=== PATIENT | female | born 1940 | race Caucasian/White ===

== ENCOUNTER → 2017-07-16 09:00 | Outpatient (CLI) | payer OTHER, SELFPAY ==
--- NOTE | 2017-07-16 | DI.MG.S_ITS ---
BILATERAL DIGITAL SCREENING MAMMOGRAM 3D/2D WITH CAD: 07/16/2017 CLINICAL: Routine screening. Comparison is made to exams dated: 01/02/2016 mammogram - [facility], 12/14/2014 mammogram, and 12/07/2013 mammogram - [facility]. There are scattered fibroglandular elements in both breasts. Current study was also evaluated with a Computer Aided Detection (CAD) system. No significant masses, calcifications, or other findings are seen in either breast. There has been no significant interval change. IMPRESSION: NEGATIVE There is no mammographic evidence of malignancy. A 1 year screening mammogram is recommended. This exam was interpreted at Station ID: [id number]. NOTE: For mammograms, a report in lay terms will be sent to the patient. Approximately 15% of breast malignancies will not be visualized mammographically. In the management of a palpable breast mass, a negative mammogram must not discourage biopsy of a clinically suspicious lesion. Electronically Signed By: Gela odell/ania:07/16/2017 09:59:53 letter sent: Normal Exam ACR BI-RADS Category 1: Negative 3341F
== END ==
PROVIDERS: PCP Internal Medicine; Visit Provider Internal Medicine
DX: Z12.31 Encounter for screening mammogram for malignant neoplasm of breast (principal)
CPT/HCPCS: 77063; 77067

== ENCOUNTER → 2017-07-30 08:18 | Outpatient (CLI) | payer OTHER, SELFPAY ==
[2017-07-30 11:23] LABS: BUN Creatinine Ratio 34.3 (6-22); Blood Urea Nitrogen 24 mg/dL (7-17); Calcium 10.1 mg/dL (8.4-10.2); Carbon Dioxide 29 mmol/L (22-32); Chloride 100 mmol/L (98-107); Estimated Glomerular Filt Rate > 60.0 mL/min (>60); Glucose 168 mg/dL (80-110); HEMOLYSIS < 15 (0-50); Potassium 4.3 mmol/L (3.4-5.1); Sodium 141 mmol/L (137-145)
[2017-07-30 11:33] LABS: Hemoglobin A1C% w Est Avg Glu 6.9 % (4.0-6.0)
== END ==
PROVIDERS: PCP Internal Medicine; Visit Provider Internal Medicine
DX: E11.65 Type 2 diabetes mellitus with hyperglycemia (principal)
CPT/HCPCS: 36415; 80048; 83036

== ENCOUNTER → 2017-12-11 08:03 | Outpatient (CLI) | payer OTHER, SELFPAY ==
[2017-12-11 08:41] LABS: Hemoglobin A1C% w Est Avg Glu 8.4 % (4.0-6.0)
[2017-12-11 09:12] LABS: BUN Creatinine Ratio 31.7 (6-22); Blood Urea Nitrogen 19 mg/dL (7-17); Carbon Dioxide 30 mmol/L (22-32); Chloride 101 mmol/L (98-107); Estimated Glomerular Filt Rate > 60.0 mL/min (>60); Glucose 198 mg/dL (80-110); HEMOLYSIS < 15 (0-50); Potassium 4.7 mmol/L (3.4-5.1); Sodium 140 mmol/L (137-145)
== END ==
PROVIDERS: PCP Internal Medicine; Visit Provider Internal Medicine
DX: E11.65 Type 2 diabetes mellitus with hyperglycemia (principal)
CPT/HCPCS: 36415; 80048; 83036

== ENCOUNTER → 2018-01-07 13:51 | Outpatient (CLI) | payer OTHER, SELFPAY | PROVIDERS: PCP Internal Medicine; Visit Provider Internal Medicine Rheumatology | DX: M85.852 Other specified disorders of bone density and structure, left thigh (principal); Z78.0 Asymptomatic menopausal state; E07.9 Disorder of thyroid, unspecified; Z82.62 Family history of osteoporosis | CPT/HCPCS: 77080 ==

== ENCOUNTER → 2018-03-12 10:28 | Outpatient (CLI) | payer OTHER, SELFPAY ==
[2018-03-12 11:04] LABS: Hemoglobin A1C% w Est Avg Glu 7.9 % (4.0-6.0)
[2018-03-12 12:41] LABS: Blood Urea Nitrogen 18 mg/dL (7-17); Carbon Dioxide 26 mmol/L (22-32); Chloride 101 mmol/L (98-107); Estimated Glomerular Filt Rate > 60.0 mL/min (>60); Glucose 149 mg/dL (80-110); HEMOLYSIS < 15 (0-50); Potassium 4.7 mmol/L (3.4-5.1); Sodium 139 mmol/L (137-145)
== END ==
PROVIDERS: PCP Internal Medicine; Visit Provider Internal Medicine
DX: E11.65 Type 2 diabetes mellitus with hyperglycemia (principal)
CPT/HCPCS: 36415; 80048; 83036

== ENCOUNTER → 2018-06-11 09:24 | Outpatient (CLI) | payer OTHER, SELFPAY ==
[2018-06-11 10:41] LABS: Blood Urea Nitrogen 18 mg/dL (7-17); Calcium 9.9 mg/dL (8.4-10.2); Carbon Dioxide 26 mmol/L (22-32); Chloride 100 mmol/L (98-107); Estimated Glomerular Filt Rate > 60.0 mL/min (>60); Glucose 164 mg/dL (80-110); HEMOLYSIS < 15 (0-50); Potassium 4.1 mmol/L (3.4-5.1); Sodium 137 mmol/L (137-145)
[2018-06-11 10:55] LABS: Free T4, Direct Thyroxine 1.74 ng/dL (0.78-2.19)
[2018-06-11 11:09] LABS: Thyroid Stimulating Hormone 1.38 uIU/mL (0.47-4.68)
== END ==
PROVIDERS: PCP Internal Medicine; Visit Provider Internal Medicine
DX: E11.65 Type 2 diabetes mellitus with hyperglycemia (principal); I10 Essential (primary) hypertension; M25.50 Pain in unspecified joint; E03.9 Hypothyroidism, unspecified
CPT/HCPCS: 36415; 80048; 83036; 84439; 84443

== ENCOUNTER → 2018-07-17 10:24 | Outpatient (CLI) | payer OTHER, SELFPAY ==
--- NOTE | 2018-07-17 | DI.MG.S_ITS ---
BILATERAL DIGITAL SCREENING MAMMOGRAM 3D/2D WITH CAD: 07/17/2018 CLINICAL: Routine screening. Comparison is made to exams dated: 07/16/2017 mammogram, 01/02/2016 mammogram, 04/08/2007 mammogram, and 01/30/2006 mammogram - [facility]. There are scattered fibroglandular elements in both breasts. Current study was also evaluated with a Computer Aided Detection (CAD) system. No significant masses, calcifications, or other findings are seen in either breast. Linear scar markers overlie the left breast. There has been no significant interval change. IMPRESSION: NEGATIVE There is no mammographic evidence of malignancy. A 1 year screening mammogram is recommended. This exam was interpreted at Station ID: [id number]. NOTE: For mammograms, a report in lay terms will be sent to the patient. Approximately 15% of breast malignancies will not be visualized mammographically. In the management of a palpable breast mass, a negative mammogram must not discourage biopsy of a clinically suspicious lesion. Electronically Signed By: Casa Somers M.D. ecl/:07/17/2018 17:58:12 letter sent: Normal Exam ACR BI-RADS Category 1: Negative 3341F
== END ==
PROVIDERS: PCP Internal Medicine; Visit Provider Internal Medicine
DX: Z12.31 Encounter for screening mammogram for malignant neoplasm of breast (principal)
CPT/HCPCS: 77063; 77067

== ENCOUNTER → 2018-10-04 08:06 | Outpatient (CLI) | payer OTHER, SELFPAY ==
[2018-10-04 09:40] LABS: Hemoglobin A1C% w Est Avg Glu 7.7 % (4.0-6.0)
[2018-10-04 09:57] LABS: Alanine Aminotransferase 18 IU/L (9-52); Albumin Globulin Ratio 1.3 (1.0-2.8); Alkaline Phosphatase 88 U/L (38-126); Aspartate Aminotransferase 13 IU/L (14-36); Bilirubin Total 0.7 mg/dL (0.2-1.3); Blood Urea Nitrogen 15 mg/dL (7-17); Calcium 10.1 mg/dL (8.4-10.2); Carbon Dioxide 29 mmol/L (22-32); Chloride 100 mmol/L (98-107); Cholesterol 214 mg/dL (140-199); Estimated Glomerular Filt Rate > 60.0 mL/min (>60); Glucose 187 mg/dL (80-110); HDL Cholesterol 45 mg/dL (40-60); HEMOLYSIS < 15 (0-50); LDL Cholesterol Calculated 146 mg/dL (<100); Potassium 4.4 mmol/L (3.4-5.1); Sodium 138 mmol/L (137-145); Triglycerides 115 mg/dL (35-150)
[2018-10-04 09:59] LABS: Creatinine Urine Random 134.7 mg/dL
[2018-10-04 10:00] LABS: Microalbumi Creatinin Ratio Ur 16.3 ug/mg CR (<30); Microalbumin Urine Random 2.2 mg/dL (0-1.6)
== END ==
PROVIDERS: PCP Internal Medicine; Visit Provider Internal Medicine
DX: E03.9 Hypothyroidism, unspecified (principal); E11.65 Type 2 diabetes mellitus with hyperglycemia; I10 Essential (primary) hypertension; M25.50 Pain in unspecified joint
CPT/HCPCS: 36415; 80053; 80061; 82043; 82570; 83036

== ENCOUNTER → 2018-11-25 10:56 | Outpatient (CLI) | payer OTHER, SELFPAY ==
--- NOTE | 2018-11-25 10:59 | DI.RAD.S_ITS ---
PROCEDURE: XR CHEST 2V INDICATIONS: cough TECHNIQUE: 2 views of the chest were acquired. COMPARISON: [facility], , CHEST 1 VIEW, 11/21/2016, 14:37. FINDINGS: Surgical changes and devices: None. Lungs and pleura: Lungs are clear. No pleural effusions or pneumothorax. Mediastinum: Mediastinal contours are normal. Heart size is normal. Bones and chest wall: No suspicious bony abnormalities. Soft tissues appear unremarkable. IMPRESSION: No acute disease. Dictated by: Adam Meadows M.D. on 11/25/2018 at 11:29 Approved by: Adam Meadows M.D. on 11/25/2018 at 11:30
== END ==
PROVIDERS: PCP Internal Medicine; Visit Provider Nurse Practitioner Family
DX: R05 Cough (principal)
CPT/HCPCS: 71046

== ENCOUNTER 2018-11-26 18:16 | Emergency (ER) | payer OTHER, SELFPAY ==
[2018-11-26 18:19] VITALS: BP 149/85; PULSE 71; RESP 18; TEMP 37.8; O2SAT 100
[2018-11-26] MEDS: ONDANSETRON 4 MG ODT PO (18:29)
--- NOTE | 2018-11-26 21:11 | PC.NURSE ---
2100 pt has taken po fluids, crackers, denies further nausea, diarrhea, or other sx, states she will stop taking the tessalon that she feels caused her vomiting/diarrhea, now >2 hours with no sx
--- NOTE | 2018-11-27 02:19 | ED_ITS ---
HPI - Nausea/Vomiting/Diarrhea General Chief complaint: Nausea/Vomiting/Diarrhea Stated complaint: sick,vomiting,diarrhea,new Rx today Source: patient and EMS Mode of arrival: EMS Related Data Home Medications Medication Instructions Recorded Confirmed ascorbic acid (vitamin C) 1,000 mg 1 gram PO DAILY tab 11/25/18 11/25/18 tablet aspirin 325 mg tablet 650 mg PO BID PRN tab 11/25/18 11/25/18 furosemide 20 mg tablet 20 mg PO QDAY PRN tab 11/25/18 [id number] 333 mg PO 11/25/18 11/25/18 mg-1.7 mg chewable tablet naproxen sodium 220 mg capsule 220 mg PO BID PRN 11/25/18 11/25/18 turmeric root extract 500 mg 500 mg PO DAILY 11/25/18 11/25/18 capsule Previous Rx's Medication Instructions Recorded levothyroxine 125 mcg tablet 125 mcg PO QDAY #90 tab 07/16/18 Glucose: Test Strips 0 str #250 str 10/03/18 atenolol 50 mg tablet 50 mg PO DAILY #30 tab 11/19/18 benzonatate 100 mg capsule 100 mg PO TID PRN #30 cap 11/25/18 dextromethorphan-guaifenesin ER 60 1 tab PO Q12H #30 tab 11/25/18 mg-1,200 mg tab,extend release,12hr Allergies Allergy/AdvReac Type Severity Reaction Status Date / Time lisinopril [LISINOPRIL] Allergy Mild Verified 11/25/18 10:26 Wpkotvj-Uly-Rkv Reductase Allergy Mild muscle pain Verified 11/25/18 10:26 Inhibitor [[id number] REDUCTASE INHIBITOR] losartan AdvReac Intermediate back pain, Verified 11/25/18 10:26 arthralgias metoprolol [METOPROLOL] AdvReac Mild ankle Verified 11/25/18 10:26 swelling, atenolol okay [facility] Medical History (Updated 11/26/18 @ 21:24 by Rivera Tejeda RN) Abnormal genetic test (Chronic) Acquired hypothyroidism (Chronic 06/28/15) Arthralgia (Chronic) Bronchitis (Resolved) Cataract (Chronic ~2013) Chicken pox (Resolved ~1949) Concussion (Resolved ~1985) Diabetes mellitus type 2, uncomplicated (Chronic) Diverticula of colon (Chronic) Diverticular disease (Chronic) Essential hypertension (Chronic 03/26/16) Foot pain (Resolved ~2013) Headache (Resolved) Hemorrhoid (Chronic ~1959) History of adenomatous polyp of colon (Chronic 06/28/15) History of migraine (Chronic) Hyperlipidemia (Chronic 03/26/16) Lower back pain (Chronic ~1959) Microalbuminuria due to type 2 diabetes mellitus (Chronic 03/26/16) Osteoarthritis (Chronic ~1994) Plantar warts (Resolved ~1973) Pneumonia (Resolved) Psoriasis (Chronic ~2011) Recurrent sinusitis (Resolved ~1949) Surgical History Anesthesia (Resolved) Breast cyst (Resolved) History of nasal surgery (Resolved) History of tonsillectomy (~1947) Status post hysterectomy (~1982) Surgical procedure planned (Resolved) Family History Sister Age: 78 Pacemaker Diabetes mellitus Asthma Heart disease Hypertension High cholesterol Kidney disease Father No problems noted. Grandfather No problems noted. Grandmother No problems noted. Mother No problems noted. Grandfather No problems noted. Grandmother No problems noted. 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 Smoking Status: Never smoker Tobacco: How many years used: 0 quit status: quit date established (Never Started) alcohol intake: never substance use type: does not use 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 Smoking Status: Never smoker Tobacco: How many years used: 0 quit status: quit date established (Never Started) alcohol intake: never substance use type: does not use Exam Initial Vital Signs Initial Vital Signs: Vital Signs Temperature 100.1 F H 11/26/18 18:19 Pulse Rate 71 11/26/18 18:19 Respiratory Rate 18 11/26/18 18:19 Blood Pressure 149/85 H 11/26/18 18:19 Pulse Oximetry 100 11/26/18 18:19 Course Orders Ordered: Discontinued Medications Ondansetron HCl (Zofran Odt) 4 mg PO NOW ONE Stop: 11/26/18 18:27 Last Admin: 11/26/18 18:29 Dose: 4 mg Documented by: SIDDHARTH Discharge Plan Departure Patient Disposition: Left Without Being Seen Clinical Impression: Patient left without being seen Discharge Date/Time: 11/26/18 21:21 Stand Alone Forms: Against Medical Advice
== END 2018-11-26 21:21 | disposition left against medical advice (07) ==
PROVIDERS: Emergency Provider Emergency Medicine; PCP Internal Medicine
DX: R11.10 Vomiting, unspecified (principal)
CPT/HCPCS: 99282

== ENCOUNTER → 2018-12-21 11:12 | Outpatient (CLI) | payer OTHER, SELFPAY ==
--- NOTE | 2018-12-21 11:14 | DI.RAD.S_ITS ---
PROCEDURE: XR CHEST 2V INDICATIONS: Productive cough, with clinical concern for pneumonia. TECHNIQUE: 2 views of the chest were acquired. COMPARISON: [facility], [place], CHEST 1 VIEW, 11/21/2016, 14:37. [facility], [place], XR CHEST 2V, 11/25/2018, 11:15. FINDINGS: Surgical changes and devices: None. Lungs and pleura: An incomplete inspiratory result is noted, causing a crowded appearance to the lung markings. No focal infiltrates are seen. No pneumothorax or significant pleural effusions are seen. Mediastinum: The cardiac contours are within normal limits. The aorta demonstrates calcification and tortuosity. Bones and chest wall: No suspicious bony abnormalities. Age-appropriate bony degenerative changes are seen. Soft tissues appear unremarkable. IMPRESSION: Limited study demonstrating no focal infiltrates. Dictated by: Gustabo Lord M.D. on 12/21/2018 at 10:53 Approved by: Gustabo Lord M.D. on 12/21/2018 at 10:54
[2018-12-21 11:53] LABS: Add Manual Diff / Slide Review NO; Basophils Absolute Auto 100 /uL (0-100); Basophils Percent Auto 1.3 % (0-2); Eosinophils Absolute Auto 200 /uL (0-450); Hematocrit 38.9 % (36-46); Hemoglobin 12.7 g/dL (12.0-16.0); Lymphocytes Absolute Auto 1800 /uL (1100-4500); Lymphocytes Percent Auto 21.5 % (25-40); Mean Corpuscular HGB Conc 32.6 % (30-36); Mean Corpuscular Volume 76.8 fL (80-100); Monocytes Absolute Auto 600 /uL (0-900); Monocytes Percent Auto 7.8 % (3-14); Neutrophils Absolute Auto 5600 /uL (1500-7000); Neutrophils Percent Auto 67.4 % (50-75); Platelet Count 461 X10^3/uL (150-400); Red Blood Cell Count 5.06 X10^6/uL (4.0-5.2); Red Cell Distribution Width 16.9 % (11.6-14.8); White Blood Cell Count 8.2 X10^3/uL (4.5-11.0)
[2018-12-21 12:07] LABS: Alanine Aminotransferase 17 IU/L (9-52); Albumin 4.5 g/dL (3.5-5.0); Albumin Globulin Ratio 1.3 (1.0-2.8); Alkaline Phosphatase 103 U/L (38-126); Aspartate Aminotransferase 15 IU/L (14-36); BUN Creatinine Ratio 24.3 (6-22); Bilirubin Total 0.6 mg/dL (0.2-1.3); Blood Urea Nitrogen 17 mg/dL (7-17); Calcium 10.5 mg/dL (8.4-10.2); Carbon Dioxide 30 mmol/L (22-32); Chloride 98 mmol/L (98-107); Estimated Glomerular Filt Rate > 60.0 mL/min (>60); Globulin 3.4 g/dL (1.7-4.1); Glucose 243 mg/dL (80-110); HEMOLYSIS < 15 (0-50); Potassium 4.1 mmol/L (3.4-5.1); Sodium 138 mmol/L (137-145); Total Protein 7.9 g/dL (6.3-8.2)
== END ==
PROVIDERS: Visit Provider Physician Assistant
DX: R05 Cough (principal)
CPT/HCPCS: 36415; 71046; 80053; 85025

== ENCOUNTER → 2018-12-22 08:23 | Outpatient (CLI) | payer OTHER, SELFPAY | PROVIDERS: Visit Provider Internal Medicine | DX: R05 Cough (principal) | CPT/HCPCS: 87070; 87205 ==

== ENCOUNTER 2018-12-27 12:49 | Emergency (ER) | payer OTHER, SELFPAY ==
--- NOTE | 2018-12-27 13:06 | ED_ITS ---
HPI - Dizziness General Chief Complaint: Dizziness Stated Complaint: DIZZINESS/SUSPECTED DRUG REACTION Time Seen by Provider: 12/27/18 13:05 Source: patient Mode of arrival: Ambulatory Limitations: no limitations History of Present Illness HPI Narrative: This is a 78-year-old female who comes to the emergency depart ment complaint of dizziness patient is concerned that possibly could be a medication reaction. She has been using Afrin intranasally for the last several days. Before that she was also taking Mucinex and has taken several different formulations over the last several weeks. She states yesterday she took her atenolol and thyroid medication at 6:00 p.m., she has the Afrin about 6:30 p.m. and when thin an hour she started feeling like the room was spinning. She states it feels better presently but is still there. She states that she has had a couple of these vertigo type episodes in the past sometimes a week apart sometimes farther. She states that usually they have totally resolved. She thought that her symptoms likely from the medication and so she was waiting for them to resolve as the medication wore off. She has had some right forehead pressure and into the right cheek today but for the past 2 weeks. It was actually worse the 1st for 5 days but is improving. She denies any facial droop, no numbness in her face, no vision changes. She denies any weakness, numbness in her extremities, she has had a cough but has been improving over time. She states she sometimes gets chest pressure with the cough and had rib pain but the rib pain has resolved. She denies shortness of breath she denies any vomiting. She sometimes feels slightly nauseated. No issues with bowel movements. Patient states that she gets some urinary stress incontinence with cough. Patient states that she has had sinus symptoms for 2 and half months, her maximum temperature has been 99 F she followed up with primary care and they did put her on the Mucinex and expectorant but she had wished for antibiotics. Related Data Home Medications Medication Instructions Recorded Confirmed ascorbic acid (vitamin C) 1,000 mg 1 gram PO DAILY tab 11/25/18 12/21/18 tablet aspirin 325 mg tablet 650 mg PO BID PRN tab 11/25/18 12/21/18 furosemide 20 mg tablet 20 mg PO QDAY PRN tab 11/25/18 12/21/18 [id number] 333 mg PO 11/25/18 12/21/18 mg-1.7 mg chewable tablet naproxen sodium 220 mg capsule 220 mg PO BID PRN 11/25/18 12/21/18 turmeric root extract 500 mg 500 mg PO DAILY 11/25/18 12/21/18 capsule Previous Rx's Medication Instructions Recorded levothyroxine 125 mcg tablet 125 mcg PO QDAY #90 tab 07/16/18 Glucose: Test Strips 0 str #250 str 10/03/18 dextromethorphan-guaifenesin ER 60 1 tab PO Q12H #30 tab 11/25/18 mg-1,200 mg tab,extend release,12hr atenolol 50 mg tablet 50 mg PO DAILY #30 tab 12/17/18 meclizine 25 mg PO TID PRN #14 tab 12/27/18 Allergies Allergy/AdvReac Type Severity Reaction Status Date / Time benzonatate Allergy Severe Severe Verified 12/21/18 10:46 [From Anoop Camargo] shaking, vomiting, diarrhea, trip to ER lisinopril [LISINOPRIL] Allergy Mild Dizzyness Verified 12/21/18 10:46 Rnnlbrr-Rat-Zfb Reductase Allergy Mild muscle pain Verified 12/21/18 10:46 Inhibitor [SUIKDHI-NZD-SRF REDUCTASE INHIBITOR] losartan AdvReac Intermediate back pain, Verified 12/21/18 10:46 arthralgias metoprolol [METOPROLOL] AdvReac Mild ankle Verified 12/21/18 10:46 swelling, atenolol okay Review of Systems Review of Systems ROS Unobtainable: All systems reviewed & are unremarkable except as noted in HPI and below Constitutional Constitutional: Denies chills, Denies fever(s) (Tmax 99.2 in ), Denies headache(s), Denies lethargy and Denies weakness Eyes Eyes: Denies change in vision ENT Ears, Nose, Mouth, and Throat: Reports as per HPI, Denies abnormal hearing, Denies change in voice, Reports vertigo, Denies ear discharge, Denies otalgia, Denies headache(s), Reports nasal congestion, Denies nasal obstruction, Denies neck pain, Reports post nasal drip, Denies sinus pain, Reports sinus pressure and Denies sore throat Cardiovascular Cardiovascular: Reports chest pain (With cough), Denies edema, Denies irregular heart rhythm, Denies lightheadedness, Denies palpitations, Denies dyspnea and D enies orthopnea Respiratory Respiratory: Denies change in phlegm color, Denies chest congestion, Reports cough (Improving), Denies excessive phlegm production, Denies pain on inspiration, Reports pain with cough, Denies dyspnea and Denies wheezing Gastrointestinal Gastrointestinal: Denies abdominal pain, Denies change in bowel habits, Denies diarrhea, Denies nausea and Denies vomiting Genitourinary Genitourinary: Denies hematuria, Denies urinary frequency, Denies dysuria, Denies flank pain, Denies urinary incontinence and Denies urinary urgency Musculoskeletal Musculoskeletal: Denies abnormal gait, Denies muscle weakness, Denies neck pain, Denies numbness and Denies tingling Integumentary/Breasts Skin/Breast: Denies erythema and Denies rash Neurologic Neurologic: Denies abnormal hearing, Denies abnormal speech, Denies abnormal gait, Reports vertigo, Denies headache(s), Denies focal weakness, Denies numbness, Denies sensory deficit, Denies tingling, Denies paresthesias and Denies weakness Endocrine Endocrine: Denies palpitations Allergic/Immunologic Allergic/Immunologic: Denies wheezing Patient History Medical History Abnormal genetic test (Chronic) Acquired hypothyroidism (Chronic 06/28/15) Arthralgia (Chronic) Bronchitis (Resolved) Cataract (Chronic ~2013) Chicken pox (Resolved ~1949) Concussion (Resolved ~1985) Diabetes mellitus type 2, uncomplicated (Chronic) Diverticula of colon (Chronic) Diverticular disease (Chronic) Essential hypertension (Chronic 03/26/16) Foot pain (Resolved ~2013) Headache (Resolved) Hemorrhoid (Chronic ~1959) History of adenomatous polyp of colon (Chronic 06/28/15) History of migraine (Chronic) Hyperlipidemia (Chronic 03/26/16) Lower back pain (Chronic ~1959) Microalbuminuria due to type 2 diabetes mellitus (Chronic 03/26/16) Osteoarthritis (Chronic ~1994) Plantar warts (Resolved ~1973) Pneumonia (Resolved) Psoriasis (Chronic ~2011) Recurrent sinusitis (Resolved ~1949) Surgical History Anesthesia (Resolved) Breast cyst (Resolved) History of nasal surgery (Resolved) History of tonsillectomy (~1948) Status post hysterectomy (~1982) Surgical procedure planned (Resolved) Social History marital status: household members: none lives independently: Yes caregiver/support person: No housing: house pets and animals: Yes occupational status: other (Retired) current occupational exposures/hazards: No Previous occupational history: Retired [employer] Smoking Status: Never smoker Tobacco: How many years used: 0 quit status: quit date established (Never Started) alcohol intake: never substance use type: does not use alcohol intake frequency: 0-2 drinks per day Substance Use Type: does not use Exam Narrative Exam Narrative: GEN: Elderly appearing female, alert and oriented x 3, patient appears to be in mild distress. patient appears anxious. HEENT: Atraumatic, pupils are equal round reactive to light, extraocular movements are intact, no photophobia, no nystagmus, nares are clear, TMs are clear with no fluid, there is no conjunctival pallor. Throat is clear without any exudates, erythema, tonsillar enlargement or uvular deviation HEART: Regular rate and rhythm without murmur, clicks, rubs. Pulses are equal in upper and lower extremities LUNGS:Lungs clear to auscultation, no wheezes, rales, crackles, chest moves symmetrically ABD:bowel sounds normal, soft, non-tender, no guarding, rebound, rigidity, no masses noted, no hepatosplenomegaly MSCL: Non-tender, no muscle atrophy, muscles strength 5/5 upper and lower extremities, full range of motion, normal gait NEURO:CN 2-12 intact, sensation normal, reflexes 2/4 upper and lower extremities . finger nose finger test normal, heel sahu test normal, romberg normal SKIN: no erythema, no petechiae or ecchymosis. Initial Vital Signs Initial Vital Signs: Vital Signs Temperature 98.6 F 12/27/18 13:19 Pulse Rate 90 12/27/18 13:19 Respiratory Rate 13 12/27/18 13:19 Blood Pressure 180/91 H 12/27/18 13:19 Pulse Oximetry 97 12/27/18 13:19 Scores NIH Stroke Scale Level of Conciousness: Alert, keenly responsive Ask month/age: Answers both questions correctly. Open/close eyes, close hand: Performs both tasks correctly Best gaze horizontal: Normal Visual [place]: No visual loss Facial palsy: Normal symetrical movement Left arm drift: No drift for full 10 sec Right arm drift: No drift for full 10 sec Left leg drift: No drift for full 10 sec Right leg drift: No drift for full 10 sec Limb ataxia: Absent Sensory on face/arms/legs: Normal, no sensory loss Best language: No aphasia, normal Dysarthria: Normal Extinction or inattention: No abnormality Total NIH Stroke scale score: 0 Course Orders Ordered: Discontinued Medications Sodium Chloride (Normal Saline 0.9%) 1,000 mls @ 1,000 mls/hr IV BOLUS ONE Stop: 12/27/18 14:44 Last Infusion: 12/27/18 15:52 Dose: 0 mls/hr Documented by: Admin: 12/27/18 14:17 Dose: 1,000 mls/hr Documented by: SIDDHARTH Meclizine HCl (Antivert) 25 mg PO NOW ONE Stop: 12/27/18 13:46 Last Admin: 12/27/18 14:16 Dose: 25 mg Documented by: SIDDHARTH Vital Signs Vital signs: Vital Signs - 8 hr 12/27/18 13:19 Temperature 98.6 F Pulse Rate 90 Respiratory Rate 13 Blood Pressure 180/91 H Pulse Oximetry 97 MDM - Dizziness Lab Data Attestation: I reviewed the patient's lab results. Result diagrams: 12/27/18 13:50 12/27/18 13:50 Labs: Lab Results 12/27/18 12/27/18 12/27/18 Range/Units 13:07 13:50 13:50 WBC 7.9 (4.5-11.0) X10^3/uL RBC 4.86 (4.0-5.2) X10^6/uL Hgb 12.0 (12.0-16.0) g/dL Hct 36.6 (36-46) % MCV 75.4 L (80-100) fL MCH 24.8 L (26-34) PG MCHC 32.9 (30-36) % RDW 16.5 H (11.6-14.8) % Plt Count 380 (150-400) X10^3/uL Neut % (Auto) 76.0 H (50-75) % Lymph % (Auto) 14.4 L (25-40) % [place] % (Auto) 7.2 (3-14) % Eos % (Auto) 1.2 L (2-4) % Baso % (Auto) 1.2 (0-2) % Neut # (Auto) 6000 (8548-1699) /uL Lymph # (Auto) 1100 (8972-2938) /uL [place] # (Auto) 600 (0-900) /uL Eos # (Auto) 100 (0-450) /uL Baso # (Auto) 100 (0-100) /uL Sodium 136 L (137-145) mmol/L Potassium 3.9 (3.4-5.1) mmol/L Chloride 98 (98-107) mmol/L Carbon Dioxide 28 (22-32) mmol/L BUN 11 (7-17) mg/dL Creatinine 0.50 L (0.52-1.04) mg/dL Estimated GFR > 60.0 (>60) mL/min BUN/Creatinine Ratio 22.0 (6-22) Glucose 203 H (80-110) mg/dL Calcium 9.7 (8.4-10.2) mg/dL Troponin I < 0.012 (0.01-0.034) ng/mL Urine RBC 1-5/hpf (0-5/HPF) Urine WBC 1-5/hpf (0-5/HPF) Ur Squamous Epith Cells 5-10 /hpf H (0-5/HPF) Urine Bacteria None seen (None) Ur Culture Indicated? Cult not indicated Urine Dip Bedside Urine Glucose Negative Bedside Urine Bilirubin - Negative Bedside Urine Ketone - Negative Urine Specific [place] 1.010 Bedside Urine Occult Blood - Negative Bedside Urine pH 7.5 Bedside Urine Protein +/- 15 Bedside Urine Urobilinogen - Negative Bedside Urine Nitrite - Negative Bedside Urine Leukocytes + [address] scan - head: Radiologist's impression: [address] [address] [address] Scan Report Signed Patient: Lolly Bang MMR#: [id number] : 2Acct:[id number] Age/Sex: 78 / FDate of Service: 12/27/18 Loc: ED Accession Number: [id number] Procedure: CT head/brain wo con Ordering Provider: Rebekah Estrella D.O. PROCEDURE: CT HEAD/BRAIN WO CON INDICATIONS: vertigo symptoms started yesterday. has had sinus pressure TECHNIQUE: Noncontrast 4.5 mm thick angled axial sections acquired from the foramen magnum to the vertex, with coronal and sagittal reformats. For radiation dose reduction, the following was used: automated exposure control, adjustment of mA and/or kV according to patient size. COMPARISON: None. FINDINGS: Image quality: Excellent. CSF spaces: Basal cisterns are patent. No extra-axial fluid collections. Ventricles are normal in size and shape. Mild bifrontal parenchymal volume loss is evident. Brain: No midline shift. No intracranial masses or hemorrhage. Salas-white matter interface is normal. Skull and face: Calvarium and visualized facial bones are intact, without suspicious lesions. Old nasal bone fractures appear to be present. Sinuses: Visualized sinuses and mastoids are clear. The right maxillary sinus is small in size and may be congenital or related to chronic sinus disease. IMPRESSION: 1. No acute intracranial hemorrhage. 2. Mild proximal volume loss. Dictated by: Marcelino Davila M.D. on 12/27/2018 at 13:16 Approved by: Marcelino Davila M.D. on 12/27/2018 at 13:17 Chest x-ray: Radiologist's impression: [place] [address] XRay Report Signed Patient: Lolly Bang MMR#: [id number] : 2Acct:[id number] Age/Sex: 78 / FDate of Service: 12/27/18 Loc: ED Accession Number: [id number] Procedure: XR chest 1V Ordering Provider: Rebekah Estrella D.O. PROCEDURE: XR CHEST 1V INDICATIONS: vertigo symptoms. TECHNIQUE: One view of the chest was acquired. COMPARISON: [facility], [place], XR CHEST 2V, 12/21/2018, 11:21. FINDINGS: Surgical changes and devices: None. Lungs and pleura: Lungs are clear. No pleural effusions or pneumothorax. Elevation of the right diaphragm is present. Mediastinum: Mediastinal contours appear normal. Heart size is enlarged. Bones and chest wall: No suspicious bony lesions. Degenerative changes of the spine and shoulders are not well characterized. Overlying soft tissues appear unremarkable. IMPRESSION: Cardiomegaly without overt heart failure. No definite pneumonia. Dictated by: Marcelino Davila M.D. on 12/27/2018 at 13:15 Approved by: Marcelino Davila M.D. on 12/27/2018 at 13:16 ECG Data Attestation: I personally reviewed and interpreted this ECG as follows: Prior ECG tracings: available for review Interpretation: Sinus rhythm rate of 90 WI 148 QRS of [address] elevation or depression. EKG appears similar to 11/21/2018. MDM Narrative Medical decision making narrative: Patient feels much better after meclizine, able to ambulate to bathroom with minimal assistance. Discussed potential causes of her vertigo symptoms, suspicion for CVA is low. Afrin is possible a cause but less likely. Patient has had prior issues which she described. Discussed signs/symptoms to watch for and reasons to return. Plan for follow up with ENT, she has seen Dr. Aleman in the past. Patient is comfortable with the plan. Discharge Plan Departure Patient Disposition: Home Clinical Impression: Vertigo Discharge Date/Time: 12/27/18 16:31 Instructions: DI for Vertigo Activity Restrictions/Additional Instructions: Follow-up with primary care in the next week for recheck, if you prefer you can follow up with ENT for repeat evaluation of your vertigo and sinus symptoms. You may take meclizine 1-2 tablets every 8 hours as needed for symptoms. Return to the emergency department for of sudden severe headaches, new vision changes, new numbness, weakness or inability to speak, use your extremities properly, persistent vomiting or other new or concerning symptoms. Prescriptions: New meclizine 25 mg tablet,chewable 25 mg PO TID PRN (Reason: dizziness) Qty: 14 RF: 0 No Action levothyroxine [Synthroid] 125 mcg tablet 125 mcg PO QDAY Qty: 90 RF: 3 Glucose: Test Strips 0 str Qty: 250 RF: 1 atenolol 50 mg tablet 50 mg PO DAILY Qty: 30 RF: 0 furosemide [Lasix] 20 mg tablet 20 mg PO QDAY PRNRF: 0 aspirin 325 mg tablet 650 mg PO BID PRNRF: 0 naproxen sodium [Aleve] 220 mg capsule 220 mg PO BID PRNRF: 0 ascorbic acid (vitamin C) 1,000 mg tablet 1 gram PO DAILY RF: 0 Airborne (ascorbate sodium) 333-1.7 mg tablet,chewable PO RF: 0 turmeric root extract 500 mg capsule 500 mg PO DAILY RF: 0 dextromethorphan-guaifenesin [Mucinex DM] 60-1,200 mg tablet extended release 12 hr 1 tab PO Q12H Qty: 30 RF: 0 Referrals: Shayan Aleman MD [Physician] -
[2018-12-27 13:19] VITALS: BP 180/91; PULSE 90; RESP 13; TEMP 37; O2SAT 97
--- NOTE | 2018-12-27 13:32 | PC.NURSE ---
Patient has had several weeks of respiratory symptoms has been medicating with OTC mucinex nasal spray and tablets. Patient reports having dizziness room spinning unable to walk alone due to balance. Reports tenderness over sinuses on right side more than left. Patient is concerned of a drug reaction verses a stroke.
--- NOTE | 2018-12-27 13:45 | DI.CT.S_ITS ---
PROCEDURE: CT HEAD/BRAIN WO CON INDICATIONS: vertigo symptoms started yesterday. has had sinus pressure TECHNIQUE: Noncontrast 4.5 mm thick angled axial sections acquired from the foramen magnum to the vertex, with coronal and sagittal reformats. For radiation dose reduction, the following was used: automated exposure control, adjustment of mA and/or kV according to patient size. COMPARISON: None. FINDINGS: Image quality: Excellent. CSF spaces: Basal cisterns are patent. No extra-axial fluid collections. Ventricles are normal in size and shape. Mild bifrontal parenchymal volume loss is evident. Brain: No midline shift. No intracranial masses or hemorrhage. Salas-white matter interface is normal. Skull and face: Calvarium and visualized facial bones are intact, without suspicious lesions. Old nasal bone fractures appear to be present. Sinuses: Visualized sinuses and mastoids are clear. The right maxillary sinus is small in size and may be congenital or related to chronic sinus disease. IMPRESSION: 1. No acute intracranial hemorrhage. 2. Mild proximal volume loss. Dictated by: Marcelino Davila M.D. on 12/27/2018 at 13:16 Approved by: Marcelino Davila M.D. on 12/27/2018 at 13:17
--- NOTE | 2018-12-27 13:46 | DI.RAD.S_ITS ---
PROCEDURE: XR CHEST 1V INDICATIONS: vertigo symptoms. TECHNIQUE: One view of the chest was acquired. COMPARISON: [facility], , XR CHEST 2V, 12/21/2018, 11:21. FINDINGS: Surgical changes and devices: None. Lungs and pleura: Lungs are clear. No pleural effusions or pneumothorax. Elevation of the right diaphragm is present. Mediastinum: Mediastinal contours appear normal. Heart size is enlarged. Bones and chest wall: No suspicious bony lesions. Degenerative changes of the spine and shoulders are not well characterized. Overlying soft tissues appear unremarkable. IMPRESSION: Cardiomegaly without overt heart failure. No definite pneumonia. Dictated by: Marcelino Davila M.D. on 12/27/2018 at 13:15 Approved by: Marcelino Davila M.D. on 12/27/2018 at 13:16
[2018-12-27 14:01] LABS: Add Manual Diff / Slide Review NO; Basophils Absolute Auto 100 /uL (0-100); Basophils Percent Auto 1.2 % (0-2); Eosinophils Absolute Auto 100 /uL (0-450); Eosinophils Percent Auto 1.2 % (2-4); Hematocrit 36.6 % (36-46); Lymphocytes Absolute Auto 1100 /uL (1100-4500); Lymphocytes Percent Auto 14.4 % (25-40); Mean Corpuscular HGB Conc 32.9 % (30-36); Mean Corpuscular Hemoglobin 24.8 PG (26-34); Mean Corpuscular Volume 75.4 fL (80-100); Monocytes Absolute Auto 600 /uL (0-900); Monocytes Percent Auto 7.2 % (3-14); Neutrophils Absolute Auto 6000 /uL (1500-7000); Platelet Count 380 X10^3/uL (150-400); Red Blood Cell Count 4.86 X10^6/uL (4.0-5.2); Red Cell Distribution Width 16.5 % (11.6-14.8); White Blood Cell Count 7.9 X10^3/uL (4.5-11.0)
[2018-12-27 14:08] LABS: Chloride 98 mmol/L (98-107); HEMOLYSIS < 15 (0-50)
[2018-12-27 14:12] LABS: Blood Urea Nitrogen 11 mg/dL (7-17); Calcium 9.7 mg/dL (8.4-10.2); Carbon Dioxide 28 mmol/L (22-32); Estimated Glomerular Filt Rate > 60.0 mL/min (>60); Glucose 203 mg/dL (80-110); Potassium 3.9 mmol/L (3.4-5.1); Sodium 136 mmol/L (137-145)
[2018-12-27] MEDS: MECLIZINE HCL 12.5 MG TABLET 25 MG PO (14:16)
[2018-12-27] MEDS: SODIUM CHLORIDE 0.9% 1,000 ML 1000 ML IV (14:17)
[2018-12-27 14:23] LABS: Troponin I < 0.012 ng/mL (0.01-0.034)
[2018-12-27 15:20] LABS: Bacteria Urine None Seen
[2018-12-27 15:45] LABS: Culture Indicated Urine Cult Not Indicated; RBC Urine 1-5/HPF (0-5/HPF); Squamous Epithelial Cell Urine 5-10 /HPF (0-5/HPF); WBC Urine 1-5/HPF (0-5/HPF)
[2018-12-27 16:30] VITALS: BP 136/89; PULSE 76; RESP 12; O2SAT 98
== END 2018-12-27 16:31 | disposition home or self-care (01) ==
PROVIDERS: Emergency Provider Emergency Medicine
DX: R42 Dizziness and giddiness (principal); R07.9 Chest pain, unspecified; R05 Cough
CPT/HCPCS: 36415; 70450; 71045; 80048; 81003; 81015; 84484; 85025; 93005; 93010; 96360; 96361; 99283; 99285

== ENCOUNTER → 2019-01-29 09:41 | Outpatient (CLI) | payer OTHER, SELFPAY ==
--- NOTE | 2019-01-29 09:42 | DI.RAD.S_ITS ---
PROCEDURE: XR CHEST 2V INDICATIONS: cough TECHNIQUE: 2 views of the chest were acquired. COMPARISON: [facility], , CHEST 1 VIEW, 11/21/2016, 14:37. [facility], , XR CHEST 1V, 12/27/2018, 13:52. [facility], CR, XR CHEST 2V, 11/25/2018, 11:15. [facility], , XR CHEST 2V, 12/21/2018, 11:21. FINDINGS: Surgical changes and devices: None. Lungs and pleura: There is a nodular density in the right lower lung zone, not seen on the last exam. No pleural effusions or pneumothorax. Mediastinum: Mediastinal contours are normal. Heart size is normal. Bones and chest wall: No suspicious bony abnormalities. Soft tissues appear unremarkable. IMPRESSION: A nodular density in the right lower lung zone which was not seen on the last exam. Recommend a short-term followup chest x-ray. If not resolving, chest CT is suggested. Dictated by: Tony Leong M.D. on 01/29/2019 at 10:18 Approved by: Tony Leong M.D. on 01/29/2019 at 10:22
[2019-01-29 10:41] LABS: Add Manual Diff / Slide Review NO; Basophils Absolute Auto 100 /uL (0-100); Basophils Percent Auto 0.8 % (0-2); Eosinophils Absolute Auto 200 /uL (0-450); Eosinophils Percent Auto 2.5 % (2-4); Hemoglobin 11.4 g/dL (12.0-16.0); Lymphocytes Absolute Auto 1200 /uL (1100-4500); Lymphocytes Percent Auto 15.8 % (25-40); Mean Corpuscular HGB Conc 32.4 % (30-36); Mean Corpuscular Hemoglobin 24.6 PG (26-34); Mean Corpuscular Volume 75.8 fL (80-100); Monocytes Absolute Auto 600 /uL (0-900); Monocytes Percent Auto 8.5 % (3-14); Neutrophils Absolute Auto 5400 /uL (1500-7000); Neutrophils Percent Auto 72.4 % (50-75); Platelet Count 405 X10^3/uL (150-400); Red Blood Cell Count 4.63 X10^6/uL (4.0-5.2); Red Cell Distribution Width 17.1 % (11.6-14.8); White Blood Cell Count 7.5 X10^3/uL (4.5-11.0)
[2019-01-29 10:45] LABS: Hemoglobin A1C% w Est Avg Glu 8.5 % (4.0-6.0)
[2019-01-29 11:12] LABS: Alanine Aminotransferase 12 IU/L (<35); Albumin 3.8 g/dL (3.5-5.0); Albumin Globulin Ratio 1.4 (1.0-2.8); Alkaline Phosphatase 107 U/L (38-126); Aspartate Aminotransferase 12 IU/L (14-36); BUN Creatinine Ratio 17.1 (6-22); Bilirubin Total 0.5 mg/dL (0.2-1.3); Blood Urea Nitrogen 12 mg/dL (7-17); Calcium 10.2 mg/dL (8.4-10.2); Carbon Dioxide 30 mmol/L (22-32); Chloride 101 mmol/L (98-107); Estimated Glomerular Filt Rate > 60.0 mL/min (>60); Globulin 2.7 g/dL (1.7-4.1); Glucose 230 mg/dL (80-110); HEMOLYSIS < 15 (0-50); Potassium 5.1 mmol/L (3.4-5.1); Sodium 140 mmol/L (137-145); Total Protein 6.5 g/dL (6.3-8.2)
== END ==
PROVIDERS: PCP Internal Medicine; Visit Provider Internal Medicine
DX: R05 Cough (principal); E11.65 Type 2 diabetes mellitus with hyperglycemia; E78.5 Hyperlipidemia, unspecified; I10 Essential (primary) hypertension
CPT/HCPCS: 36415; 71046; 80053; 83036; 85025; 86140

== ENCOUNTER → 2019-02-10 14:37 | Outpatient (CLI) | payer OTHER, SELFPAY ==
--- NOTE | 2019-02-10 14:40 | DI.RAD.S_ITS ---
PROCEDURE: XR ACUTE ABDOMEN SERIES INDICATIONS: abdominal distention TECHNIQUE: One view chest and two views of the abdomen were acquired. COMPARISON: [facility], CR, XR CHEST 2V, 12/21/2018, 11:21. [facility], CR, XR CHEST 2V, 11/25/2018, 11:15. [facility], CR, XR CHEST 1V, 12/27/2018, 13:52. [facility], CR, XR CHEST 2V, 01/29/2019, 9:41. FINDINGS: Surgical changes and devices: None. Chest: There is a nodular density in the right lower lung zone. Lungs are clear. Heart size is normal. No pleural effusions. No pneumoperitoneum. Abdomen: Bowel gas pattern is nonspecific with paucity of small bowel gas. A moderate amount of stool in colon. No suspicious calcifications. Visualized solid organ contours appear normal. Bones: No suspicious bony lesions. IMPRESSION: 1. A moderate amount of stool in colon. 2. Nonspecific bowel gas pattern. 3. A nodular density in the right lower lung zone, which consisted since the last chest x-ray dated 01/29/2019. Chest CT is suggested for followup evaluation. Dictated by: Tony Leong M.D. on 02/10/2019 at 15:43 Approved by: Tony Leong M.D. on 02/10/2019 at 15:46
== END ==
PROVIDERS: PCP Internal Medicine; Visit Provider Internal Medicine
DX: R14.0 Abdominal distension (gaseous) (principal); R91.1 Solitary pulmonary nodule
CPT/HCPCS: 74022

== ENCOUNTER → 2019-03-04 08:41 | Outpatient (CLI) | payer OTHER, SELFPAY ==
[2019-03-04 09:04] LABS: BUN Creatinine Ratio 14.3 (6-22); Blood Urea Nitrogen 10 mg/dL (7-17); Estimated Glomerular Filt Rate > 60.0 mL/min (>60)
--- NOTE | 2019-03-04 10:17 | DI.CT.S_ITS ---
PROCEDURE: CT CHEST ABD PEL W CON INDICATIONS: abd pain/cough/pulmonary nodule TECHNIQUE: After the administration of oral and intravenous contrast, 5 mm thick sections acquired from the lung apices to the symphysis. 5 mm coronal and sagittal reformats were performed, with additional 7 mm coronal MIP reformats through the lungs. For radiation dose reduction, the following was used: automated exposure control, adjustment of mA and/or kV according to patient size. COMPARISON: None. FINDINGS: Image quality: Excellent. CHEST: Lungs and pleura: Scattered atelectasis in bilateral mid to lower lung [place] are seen. There is biapical scarring. A 1.1 x 0.8 cm slightly lobulated soft tissue density nodule is noted in anterior aspect of right middle lobe near right lung base series 3 image 165. 4-5 mm solid nodule in posterior aspect of left lung base is seen series 3 image 193 5 mm nodular density in posterior aspect of right lung base series 3 image 174. A 4 mm nodular density is also seen in anteromedial aspect of left apex series 3 image 30. No pleural effusions or pneumothorax. Central and peripheral airways appear patent and normal in caliber. Mediastinum: Heart size is normal. No pericardial effusion. No mediastinal or hilar adenopathy by size criteria. Thoracic aorta and central pulmonary arteries are normal in size. Esophagus is normal in caliber. There is a small hiatal hernia. Chest wall: No axillary or supraclavicular adenopathy by size criteria. Thyroid gland is within normal limits. ABDOMEN: Solid organs: Liver is normal in size and enhancement. Gallbladder is within normal limits. Biliary system is non dilated. Pancreas enhances normally. Spleen is normal in size and enhancement. No adrenal nodules. Right kidney demonstrates normal size and enhancement, without hydronephrosis. 8.3 x 7.9 x 9 cm heterogeneously enhancing solid appearing exophytic mass involving anterior cortex of mid to lower pole left kidney is seen with central area of fluid density highly concerning for renal cell carcinoma with central tumoral necrosis. Peritoneum and bowel: Large amount of ascites fluid is seen throughout abdomen and pelvis with omental cake and peritoneal soft tissue nodules concerning for extensive peritoneal metastases. No gross free air is seen. There is no evidence of bowel obstruction. No gross abnormal bowel wall thickening. No oral contrast extravasation. Small hiatal hernia is seen. Nodes and vessels: No retroperitoneal or mesenteric adenopathy by size criteria. Aorta and inferior vena cava are normal in size. Miscellaneous: No ventral hernias. PELVIS: Genitourinary: Bladder wall thickness is normal. There is likely hysterectomy. Miscellaneous: No inguinal hernias or adenopathy. Bones: No definite suspicious bony lesion. Subacute to chronic appearing nondisplaced fracture involving right posterior eighth rib is seen. No compression fracture or spondylolisthesis is seen in thoracic and lumbar spine. Degenerative disc disease throughout the spine is seen. IMPRESSION: 1. Large amount of ascites fluid in the abdomen and pelvis with omental cake and peritoneal soft tissue density nodules concerning for extensive peritoneal metastases. No gross free air. 2. Large soft tissue density in heterogeneously enhancing mass involving anterior cortex of left kidney measures 8.3 x 7.9 x 9 cm in size highly suspicious for renal cell carcinoma with central area of tumor necrosis. 3. Soft tissue density nodule seen scattered in bilateral lower lung [place] measures up to 11 x 8 mm in size in anterior right middle lobe concerning for pulmonary metastasis. Bibasilar atelectasis. No pleural effusion or pneumothorax. Airway is patent. Dictated by: Clive Alexandre M.D. on 03/04/2019 at 11:30 Approved by: Clive Alexandre M.D. on 03/04/2019 at 11:51
== END ==
PROVIDERS: PCP Internal Medicine; Visit Provider Student in an Organized Health Care Education/Training Program
DX: R10.9 Unspecified abdominal pain (principal); R05 Cough; R18.8 Other ascites; N28.89 Other specified disorders of kidney and ureter; J98.11 Atelectasis; R91.8 Other nonspecific abnormal finding of lung field; K44.9 Diaphragmatic hernia without obstruction or gangrene; K57.30 Diverticulosis of large intestine without perforation or abscess without bleeding; N14.1 Nephropathy induced by other drugs, medicaments and biological substances; T50.8X5A Adverse effect of diagnostic agents, initial encounter
CPT/HCPCS: 36415; 71260; 74177; 82565; 84520; Q9967

== ENCOUNTER → 2019-03-12 14:26 | Outpatient (CLI) | payer OTHER, SELFPAY ==
[2019-03-12 15:36] LABS: Add Manual Diff / Slide Review NO; Basophils Absolute Auto 0 /uL (0-100); Basophils Percent Auto 0.6 % (0-2); Eosinophils Absolute Auto 200 /uL (0-450); Eosinophils Percent Auto 2.5 % (2-4); Hematocrit 34.9 % (36-46); Hemoglobin 11.2 g/dL (12.0-16.0); Lymphocytes Absolute Auto 1700 /uL (1100-4500); Lymphocytes Percent Auto 22.6 % (25-40); Mean Corpuscular HGB Conc 32.3 % (30-36); Mean Corpuscular Hemoglobin 23.9 PG (26-34); Mean Corpuscular Volume 74.2 fL (80-100); Monocytes Absolute Auto 700 /uL (0-900); Monocytes Percent Auto 8.9 % (3-14); Neutrophils Absolute Auto 4900 /uL (1500-7000); Neutrophils Percent Auto 65.4 % (50-75); Platelet Count 504 X10^3/uL (150-400); Red Cell Distribution Width 17.2 % (11.6-14.8); White Blood Cell Count 7.6 X10^3/uL (4.5-11.0)
[2019-03-12 15:37] LABS: Prothrombin Time 11.4 SECONDS (10.1-12.7)
[2019-03-12 15:44] LABS: Alanine Aminotransferase 16 IU/L (<35); Albumin Globulin Ratio 1.2 (1.0-2.8); Alkaline Phosphatase 89 U/L (38-126); Aspartate Aminotransferase 21 IU/L (14-36); Bilirubin Total 0.3 mg/dL (0.2-1.3); Bilirubin Unconjugated 0.2 mg/dL (0.0-1.1); Globulin 3.4 g/dL (1.7-4.1); HEMOLYSIS < 15 (0-50); Total Protein 7.4 g/dL (6.3-8.2)
[2019-03-16 09:16] LABS: Hepatitis A Antibody IgM NONREACTIVE; Hepatitis Acute Panel Interp 0.01; Hepatitis B Core Antibody IgM NONREACTIVE; Hepatitis B Surface Antigen NONREACTIVE; Hepatitis C Antibody NONREACTIVE
== END ==
PROVIDERS: PCP Internal Medicine; Visit Provider Urology
DX: R18.8 Other ascites (principal)
CPT/HCPCS: 36415; 80074; 80076; 85025; 85610

== ENCOUNTER → 2019-03-18 08:00 | Outpatient (CLI) | payer OTHER, SELFPAY ==
[2019-03-18 09:29] LABS: Lactate Dehydrogenase 697 U/L (313-618)
[2019-03-18 09:57] LABS: Cancer Antigen 125 279 U/mL (0-35)
== END ==
PROVIDERS: PCP Internal Medicine; Visit Provider Urology
DX: C80.0 Disseminated malignant neoplasm, unspecified (principal)
CPT/HCPCS: 36415; 82378; 83615; 86304

== ENCOUNTER 2019-07-16 16:50 | Emergency (ER) | payer OTHER, SELFPAY ==
[2019-07-16 16:42] VITALS: BP 134/70; PULSE 92; RESP 19; TEMP 36.5; O2SAT 94
--- NOTE | 2019-07-16 16:52 | DI.CT.S_ITS ---
PROCEDURE: CT STROKE INDICATIONS: Eval for CVA TECHNIQUE: Noncontrast 4.5 mm thick angled axial sections acquired from the foramen magnum to the vertex, with coronal reformats. For radiation dose reduction, the following was used: automated exposure control, adjustment of mA and/or kV according to patient size. COMPARISON: [facility], CT, CT HEAD/BRAIN WO CON, 12/27/2018, 13:58. FINDINGS: Image quality: Excellent. CSF spaces: Basal cisterns are patent. No extra-axial fluid collections. The ventricles are symmetric in size and shape. Brain: No intracranial bleeds or masses. There is cerebral volume loss for age, with resultant ventricular and sulcal prominence. There are periventricular and deep white matter chronic small vessel ischemic changes. There is intracranial internal carotid artery atherosclerosis. Bilateral frontal hypodense hygromas are present, unchanged. Skull and face: Calvarium and visualized facial bones appear intact, without suspicious lesions. Sinuses: Visualized sinuses and mastoids are clear. IMPRESSION: 1. No acute intracranial process. 2. Moderate atrophy and chronic microvascular ischemic changes. The findings were discussed with Dr. Leobardo Hernandez on 07/16/19 at 5:21 PM. This study fulfills neurological imaging criteria for inclusion or exclusion of acute stroke therapies based on available published neurological guidelines. Dictated by: Janelle Bazzi M.D. on 07/16/2019 at 17:21 Approved by: Janelle Bazzi M.D. on 07/16/2019 at 17:22
--- NOTE | 2019-07-16 16:59 | DI.CT.S_ITS ---
PROCEDURE: CT ANGIO HEAD AND NECK INDICATIONS: CVA TECHNIQUE: Pre-contrast 4.5 mm thick sections acquired from the foramen magnum to the vertex. After the administration of intravenous contrast, 1 mm thick sections acquired from the aortic arch through the [place]. Post-contrast 4.5 mm thick sections then re-acquired from the foramen magnum to the vertex. 3-dimensional [id number] (MIP) and/or volume rendering reformats were acquired of the central intracranial vasculature and neck separately. COMPARISON: [facility], US, US BIOPSY ABDOMEN/RETROPERITONIUM, 03/27/2019, 11:41. [facility], CT, CT CHEST ABD PEL W CON, 03/04/2019, 10:18. [facility], CT, CT STROKE, 07/16/2019, 16:48. [facility], CT, CT HEAD/BRAIN WO CON, 12/27/2018, 13:58. FINDINGS: Image quality: Excellent. BRAIN: The ventricular system and cortical sulci demonstrate atrophy, consistent for the patient's stated age. There are areas of hypodensity within the periventricular and subcortical white matter. There is no acute intra-or extra axial fluid collection. No acute hemorrhage, mass lesion or midline shift. Brainstem is unremarkable.. Globes are symmetrical. Sinuses are aerated. Osseous structures are intact. HEAD CT ANGIOGRAPHY: Anterior circulation: Intracranial internal carotid arteries are normal in size and flow. The flow within the paired anterior cerebral arteries is normal and symmetric. The flow within the middle cerebral arteries is normal and symmetric. The anterior communicating artery is seen. No aneurysms are seen. Posterior circulation: Visualized portions of the vertebral arteries demonstrate normal caliber, and join to form a normal appearing basilar artery. Flow within the posterior cerebral arteries is normal and symmetric. No aneurysms are seen. NECK CT ANGIOGRAPHY: The origins of the left and right common and external carotid arteries demonstrate no areas of hemodynamically significant stenosis, vascular occlusion or aneurysmal dilation. Mild calcification is noted at the origins of the internal carotid arteries bilaterally with less than 30% stenosis. Origins of the left and right vertebral arteries demonstrate no areas of hemodynamically significant stenosis, vascular occlusion or aneurysmal dilation. Aortic arch demonstrates conventional anatomy. Limited, visualized portions of the subclavian vasculature are unremarkable. Lung apices demonstrate multiple bilateral pulmonary nodules with the largest identified in the posterior left upper lobe measuring 13 mm. They have significantly increased in size and number compared to prior exam. IMPRESSION: 1. No acute intracranial process. 2. Moderate atrophy and chronic microvascular ischemic changes. 3. No areas of hemodynamically significant stenosis, vascular occlusion or aneurysmal dilation within the anterior or posterior circulation. 4. No areas of hemodynamically significant stenosis, vascular occlusion or aneurysmal dilation within the neck vasculature. 5. Multiple bilateral pulmonary nodules increased in size and number compared to prior exam. Overall appearance is consistent with interval progression of metastatic disease. Any quantitative measurements of stenosis were performed using NASCET criteria. Dictated by: Janelle Bazzi M.D. on 07/16/2019 at 17:37 Approved by: Janelle Bazzi M.D. on 07/16/2019 at 17:51
--- NOTE | 2019-07-16 17:20 | PC.NURSE ---
Pt began following commands and being able to answer questions with clear speech.
[2019-07-16 17:22] LABS: INR 0.9 (0.9-1.3); Prothrombin Time 10.6 SECONDS (10.1-12.7)
[2019-07-16] MEDS: SODIUM CHLORIDE 0.9% 1,000 ML 125 ML IV (17:22)
[2019-07-16 17:24] LABS: Add Manual Diff / Slide Review NO; Basophils Absolute Auto 0 /uL (0-100); Basophils Percent Auto 0.6 % (0-2); Eosinophils Absolute Auto 100 /uL (0-450); Eosinophils Percent Auto 1.4 % (2-4); Hematocrit 25.5 % (36-46); Hemoglobin 8.5 g/dL (12.0-16.0); Lymphocytes Absolute Auto 1400 /uL (1100-4500); Lymphocytes Percent Auto 27.8 % (25-40); Mean Corpuscular HGB Conc 33.3 % (30-36); Monocytes Absolute Auto 600 /uL (0-900); Monocytes Percent Auto 11.3 % (3-14); Neutrophils Absolute Auto 2900 /uL (1500-7000); Neutrophils Percent Auto 58.9 % (50-75); PTT Partial Thromboplastin Tim 30 SECONDS (26.4-36.2); Platelet Count 323 X10^3/uL (150-400); Red Blood Cell Count 3.26 X10^6/uL (4.0-5.2); Red Cell Distribution Width 29.1 % (11.6-14.8)
[2019-07-16] MEDS: MIDAZOLAM 2 MG/2 ML VIAL (17:24)
[2019-07-16 17:26] LABS: Alanine Aminotransferase 12 IU/L (<35); Albumin 3.7 g/dL (3.5-5.0); Albumin Globulin Ratio 1.2 (1.0-2.8); Alkaline Phosphatase 79 U/L (38-126); Aspartate Aminotransferase 26 IU/L (14-36); BUN Creatinine Ratio 16.9 (6-22); Bilirubin Total 0.6 mg/dL (0.2-1.3); Blood Urea Nitrogen 11 mg/dL (7-17); Calcium 10.9 mg/dL (8.4-10.2); Carbon Dioxide 26 mmol/L (22-32); Chloride 100 mmol/L (98-107); Estimated Glomerular Filt Rate > 60.0 mL/min (>60); Ethanol (ETOH) < 10 mg/dL; Glucose 119 mg/dL (80-110); HEMOLYSIS 29 (0-50); Lipase 177 U/L (23-300); Potassium 3.8 mmol/L (3.4-5.1); Sodium 138 mmol/L (137-145); Total Protein 6.7 g/dL (6.3-8.2)
[2019-07-16 17:27] LABS: Acetaminophen 11 ug/mL (10-30)
--- NOTE | 2019-07-16 17:29 | ED_ITS ---
HPI - Neuro Symptoms/Deficit General Chief Complaint: Neuro Symptoms/Deficit Stated Complaint: Confusion,repeating self. LNW 1625 Time Seen by Provider: 07/16/19 16:52 Source: family and EMS Mode of arrival: EMS Limitations: altered mental status History of Present Illness HPI Narrative: 79-year-old female arrived by EMS as a code stroke. Is reported that approximately 1615 hours which is less than 30 minutes before arrival here at the emergency department the patient was at her normal state health. She was with her daughter when his reported that the patient became acutely confused, throwing her arms around, combative. Patient's daughter called 911. EMS arrived. Prior to arrival they did obtain a blood sugar which was greater than 100. They provided no sedative medication. They stated that the patient was confused and slurring her words although was moving all 4 extremities. Patient unable to provide any HPI or review of systems Related Data Home Medications Medication Instructions Recorded Confirmed furosemide 20 mg tablet 20 mg PO QDAY tab 11/25/18 07/16/19 [id number] 333 mg PO 11/25/18 02/10/19 mg-1.7 mg chewable tablet hydrocodone-acetaminophen 1 - 2 tab PO Q4-6H PRN 07/16/19 07/16/19 Previous Rx's Medication Instructions Recorded levothyroxine 125 mcg tablet 125 mcg PO QDAY #90 tab 07/16/18 Glucose: Test Strips 0 str #250 str 10/03/18 atenolol 50 mg tablet See Rx Instructions .ROUTE 01/26/19 .COMPLEX #30 tablet Allergies Allergy/AdvReac Type Severity Reaction Status Date / Time benzonatate Allergy Severe Severe Verified 07/16/19 18:47 [From Anoop Camargo] shaking, vomiting, diarrhea, trip to ER lisinopril [LISINOPRIL] Allergy Mild Dizzyness Verified 07/16/19 18:47 Dymsbxx-Rtu-Qmn Reductase Allergy Mild muscle pain Verified 07/16/19 18:47 Inhibitor [[id number] REDUCTASE INHIBITOR] losartan AdvReac Intermediate back pain, Verified 07/16/19 18:47 arthralgias metoprolol [METOPROLOL] AdvReac Mild ankle Verified 07/16/19 18:47 swelling, atenolol okay Sulfa (Sulfonamide AdvReac Mild 'hard on Verified 07/16/19 18:47 Antibiotics) stomach' Review of Systems Review of Systems ROS Unobtainable: Unobtainable due to medical condition Patient History Medical History Abnormal genetic test (Chronic) Acquired hypothyroidism (Chronic 06/28/15) Arthralgia (Chronic) Bronchitis (Resolved) Cataract (Chronic ~2013) Chicken pox (Resolved ~1949) Concussion (Resolved ~1985) Diabetes mellitus type 2, uncomplicated (Chronic) Diverticula of colon (Chronic) Diverticular disease (Chronic) Essential hypertension (Chronic 03/26/16) Foot pain (Resolved ~2013) Headache (Resolved) Hemorrhoid (Chronic ~1959) History of adenomatous polyp of colon (Chronic 06/28/15) History of migraine (Chronic) Hyperlipidemia (Chronic 03/26/16) Lower back pain (Chronic ~1959) Microalbuminuria due to type 2 diabetes mellitus (Chronic 03/26/16) Osteoarthritis (Chronic ~1994) Plantar warts (Resolved ~1973) Pneumonia (Resolved) Psoriasis (Chronic ~2011) Recurrent sinusitis (Resolved ~1949) Surgical History Anesthesia (Resolved) Breast cyst (Resolved) History of nasal surgery (Resolved) History of tonsillectomy (~1947) Status post hysterectomy (~1982) Surgical procedure planned (Resolved) Family History Sister Age: 79 Pacemaker Diabetes mellitus Asthma Heart disease Hypertension High cholesterol Kidney disease Father No problems noted. Grandfather No problems noted. Grandmother No problems noted. Mother No problems noted. Grandfather No problems noted. Grandmother No problems noted. 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 Smoking Status: Never smoker Tobacco: How many years used: 0 quit status: quit date established (Never Started) alcohol intake: never substance use type: does not use Smoking Status: Never smoker alcohol intake frequency: 0-2 drinks per day Substance Use Type: does not use Exam Initial Vital Signs Initial Vital Signs: Vital Signs Temperature 97.7 F 07/16/19 16:42 Pulse Rate 92 H 07/16/19 16:42 Respiratory Rate 19 07/16/19 16:42 Blood Pressure 134/70 07/16/19 16:42 Pulse Oximetry 94 07/16/19 16:42 Const General: well developed, well groomed and combative Limitations: altered mental status HENMT Head: normal to inspection and normocephalic Eyes Pupils: PERRL Resp Effort & Inspection: normal respiratory effort Auscultation: clear to auscultation bilaterally Cardio Rate: regular rate Rhythm: regular rhythm GI Inspection: distended Palpation: No firm Back/Spine/Pelvis Back: normal to inspection Skin General: No jaundice Lesions: no lesions Rashes: no rashes Neuro General: awake and moves all extremities Cognition: abnormal cognition Other: Patient was alert and keenly responsive Did not answer month and age correctly Did blink her eyes and squeeze her hands Unable to assess for is horizontal gaze given patient's willingness/ability to perform tasks Unable to assess visual given patient's willingness/ability to perform test Patient without facial palsy Patient's left arm no drift for 10 seconds Patient's right arm did drift to the bed however patient did have was seem to be full range of motion from the elbow distal. She seemed to have difficulty flex in an extension and abduction at the shoulder Left leg trips but does not hit bed Right leg drift but does not hit bed Difficult to obtain ataxia as patient is unable/unwilling to do heel to sahu bilateral. Is able to do finger to nose but has difficulty Unable to diagnose sensory loss given patient's ability to respond to exam Patient is not aphasic. The words that she is saying are easily recognizable but inappropriate Patient not dysarthric Inability to obtain extinction/inattention given patient's ability/willingness to perform task Extrem General: capillary refill normal and No edema Psych Appearance: poorly kempt Scores GCS Cylinder coma scale eye opening: Spontaneous Jacoby coma scale verbal response: Words Jacoby coma scale motor response: Obey commands Cylinder coma scale total score: 13 Course Orders Ordered: ED Orders 07/16/19 16:52 CT Stroke Stat 07/16/19 16:54 EKG-12 Lead Stat 07/16/19 16:59 CT angio head and neck Stat 05/21/20 17:01 Acetaminophen Stat Complete Blood Count AUTO DIFF Stat Comprehensive Metabolic Panel Stat Ethanol (ETOH) Stat Lipase Stat Partial Thromboplastin Time Stat Procalcitonin Stat Prothrombin Time INR Stat Troponin I Stat 07/16/19 17:21 Ammonia (NH3) Stat Lactate (Lactic Acid) Stat 07/16/19 19:00 Urinalysis and Microscopic Stat Sodium Chloride (Normal Saline 0.9%) 1,000 mls @ 125 mls/hr IV CONT JANELLE Last Admin: 07/16/19 17:22 Dose: 125 mls/hr Documented by: MARLON Discontinued Medications Levetiracetam 1,000 mg/ Sodium (Chloride) 110 mls @ 440 mls/hr IV NOW ONE Stop: 07/16/19 18:16 Last Infusion: 07/16/19 19:24 Dose: 0 mls/hr Documented by: Admin: 07/16/19 18:56 Dose: 440 mls/hr Documented by: MARLON Vital Signs Vital signs: Vital Signs - 8 hr 07/16/19 16:42 07/16/19 17:34 07/16/19 18:23 Temperature 97.7 F Pulse Rate 92 H 97 H 81 Respiratory Rate 19 29 H 22 Blood Pressure 134/70 Blood Pressure [Right Arm] 134/70 123/57 L Pulse Oximetry 94 97 96 07/16/19 19:01 07/16/19 20:00 Temperature Pulse Rate 81 83 Respiratory Rate 20 23 Blood Pressure Blood Pressure [Right Arm] 148/72 H 129/79 Pulse Oximetry 97 95 MDM - Neuro Symptoms/Deficit Medical Records Attestation: I reviewed the patient's medical records. Lab Data Attestation: I reviewed the patient's lab results. Result diagrams: 07/16/19 17:01 07/16/19 17:01 Labs: Lab Results 07/16/19 07/16/19 07/16/19 Range/Units 17:01 17:01 17:01 WBC 5.0 (4.5-11.0) X10^3/uL RBC 3.26 L (4.0-5.2) X10^6/uL Hgb 8.5 L (12.0-16.0) g/dL Hct 25.5 L (36-46) % MCV 78.0 L (80-100) fL MCH 26.0 (26-34) PG MCHC 33.3 (30-36) % RDW 29.1 H (11.6-14.8) % Plt Count 323 (150-400) X10^3/uL Neut % (Auto) 58.9 (50-75) % Lymph % (Auto) 27.8 (25-40) % [place] % (Auto) 11.3 (3-14) % Eos % (Auto) 1.4 L (2-4) % Baso % (Auto) 0.6 (0-2) % Neut # (Auto) 2900 (1954-7211) /uL Lymph # (Auto) 1400 (0691-4996) /uL [place] # (Auto) 600 (0-900) /uL Eos # (Auto) 100 (0-450) /uL Baso # (Auto) 0 (0-100) /uL RBC Morphology See below Dimorphic RBCs Yes Poikilocytosis 1+ H Anisocytosis 3+ H Microcytosis 1+ H PT 10.6 (10.1-12.7) SECONDS INR 0.9 (0.9-1.3) APTT 30 (26.4-36.2) SECONDS Sodium (137-145) mmol/L Potassium (3.4-5.1) mmol/L Chloride (98-107) mmol/L Carbon Dioxide (22-32) mmol/L BUN (7-17) mg/dL Creatinine (0.52-1.04) mg/dL Estimated GFR (>60) mL/min BUN/Creatinine Ratio (6-22) Glucose (80-110) mg/dL Lactate (0.7-2.1) mmol/L Calcium (8.4-10.2) mg/dL Total Bilirubin (0.2-1.3) mg/dL AST (14-36) IU/L ALT (<35) IU/L Alkaline Phosphatase (38-126) U/L Ammonia (9-30) umol/L Troponin I (0.01-0.034) ng/mL Total Protein (6.3-8.2) g/dL Albumin (3.5-5.0) g/dL Globulin (1.7-4.1) g/dL Albumin/Globulin Ratio (1.0-2.8) Lipase (23-300) U/L Procalcitonin (<0.5) ng/mL Urine Color Urine Appearance Urine pH (4.5-8.0) Ur Specific [place] (1.000-1.035) Urine Protein (Negative) Urine Glucose (UA) (Negative) g/dL Urine Ketones (NEGATIVE) Urine Occult Blood (Negative) Urine Nitrate (Negative) Urine Bilirubin (NEGATIVE) Urine Urobilinogen (0.2) E.U./dL Ur Leukocyte Esterase (NEGATIVE) Urine RBC (0-5/HPF) Urine WBC (0-5/HPF) Ur Squamous Epith Cells (0-5/HPF) Urine Bacteria (None) Ur Culture Indicated? Acetaminophen 11 (10-30) ug/mL Ethyl Alcohol ( - 10) mg/dL 07/16/19 07/16/19 07/16/19 Range/Units 17:01 17:01 17:21 WBC (4.5-11.0) X10^3/uL RBC (4.0-5.2) X10^6/uL Hgb (12.0-16.0) g/dL Hct (36-46) % MCV (80-100) fL MCH (26-34) PG MCHC (30-36) % RDW (11.6-14.8) % Plt Count (150-400) X10^3/uL Neut % (Auto) (50-75) % Lymph % (Auto) (25-40) % [place] % (Auto) (3-14) % Eos % (Auto) (2-4) % Baso % (Auto) (0-2) % Neut # (Auto) (4167-0105) /uL Lymph # (Auto) (6434-1315) /uL [place] # (Auto) (0-900) /uL Eos # (Auto) (0-450) /uL Baso # (Auto) (0-100) /uL RBC Morphology Dimorphic RBCs Poikilocytosis Anisocytosis Microcytosis PT (10.1-12.7) SECONDS INR (0.9-1.3) APTT (26.4-36.2) SECONDS Sodium 138 (137-145) mmol/L Potassium 3.8 (3.4-5.1) mmol/L Chloride 100 (98-107) mmol/L Carbon Dioxide 26 (22-32) mmol/L BUN 11 (7-17) mg/dL Creatinine 0.65 (0.52-1.04) mg/dL Estimated GFR > 60.0 (>60) mL/min BUN/Creatinine Ratio 16.9 (6-22) Glucose 119 H (80-110) mg/dL Lactate (0.7-2.1) mmol/L Calcium 10.9 H (8.4-10.2) mg/dL Total Bilirubin 0.6 (0.2-1.3) mg/dL AST 26 (14-36) IU/L ALT 12 (<35) IU/L Alkaline Phosphatase 79 (38-126) U/L Ammonia < 9 L (9-30) umol/L Troponin I < 0.012 (0.01-0.034) ng/mL Total Protein 6.7 (6.3-8.2) g/dL Albumin 3.7 (3.5-5.0) g/dL Globulin 3.0 (1.7-4.1) g/dL Albumin/Globulin Ratio 1.2 (1.0-2.8) Lipase 177 (23-300) U/L Procalcitonin 0.08 (<0.5) ng/mL Urine Color Urine Appearance Urine pH (4.5-8.0) Ur Specific [place] (1.000-1.035) Urine Protein (Negative) Urine Glucose (UA) (Negative) g/dL Urine Ketones (NEGATIVE) Urine Occult Blood (Negative) Urine Nitrate (Negative) Urine Bilirubin (NEGATIVE) Urine Urobilinogen (0.2) E.U./dL Ur Leukocyte Esterase (NEGATIVE) Urine RBC (0-5/HPF) Urine WBC (0-5/HPF) Ur Squamous Epith Cells (0-5/HPF) Urine Bacteria (None) Ur Culture Indicated? Acetaminophen (10-30) ug/mL Ethyl Alcohol < 10 ( - 10) mg/dL 07/16/19 07/16/19 07/16/19 Range/Units 17:21 19:00 19:39 WBC (4.5-11.0) X10^3/uL RBC (4.0-5.2) X10^6/uL Hgb (12.0-16.0) g/dL Hct (36-46) % MCV (80-100) fL MCH (26-34) PG MCHC (30-36) % RDW (11.6-14.8) % Plt Count (150-400) X10^3/uL Neut % (Auto) (50-75) % Lymph % (Auto) (25-40) % [place] % (Auto) (3-14) % Eos % (Auto) (2-4) % Baso % (Auto) (0-2) % Neut # (Auto) (7411-8042) /uL Lymph # (Auto) (2646-9069) /uL [place] # (Auto) (0-900) /uL Eos # (Auto) (0-450) /uL Baso # (Auto) (0-100) /uL RBC Morphology Dimorphic RBCs Poikilocytosis Anisocytosis Microcytosis PT (10.1-12.7) SECONDS INR (0.9-1.3) APTT (26.4-36.2) SECONDS Sodium (137-145) mmol/L Potassium (3.4-5.1) mmol/L Chloride (98-107) mmol/L Carbon Dioxide (22-32) mmol/L BUN (7-17) mg/dL Creatinine (0.52-1.04) mg/dL Estimated GFR (>60) mL/min BUN/Creatinine Ratio (6-22) Glucose (80-110) mg/dL Lactate 3.0 H 0.8 (0.7-2.1) mmol/L Calcium (8.4-10.2) mg/dL Total Bilirubin (0.2-1.3) mg/dL AST (14-36) IU/L ALT (<35) IU/L Alkaline Phosphatase (38-126) U/L Ammonia (9-30) umol/L Troponin I (0.01-0.034) ng/mL Total Protein (6.3-8.2) g/dL Albumin (3.5-5.0) g/dL Globulin (1.7-4.1) g/dL Albumin/Globulin Ratio (1.0-2.8) Lipase (23-300) U/L Procalcitonin (<0.5) ng/mL Urine Color Yellow Urine Appearance Clear Urine pH 8.5 H (4.5-8.0) Ur Specific [place] <=1.005 (1.000-1.035) Urine Protein Negative (Negative) Urine Glucose (UA) Negative (Negative) g/dL Urine Ketones 1+ H (NEGATIVE) Urine Occult Blood Negative (Negative) Urine Nitrate Negative (Negative) Urine Bilirubin Negative (NEGATIVE) Urine Urobilinogen 0.2 (0.2) E.U./dL Ur Leukocyte Esterase Negative (NEGATIVE) Urine RBC None seen (0-5/HPF) Urine WBC 0-1/hpf (0-5/HPF) Ur Squamous Epith Cells 0-1 /hpf (0-5/HPF) Urine Bacteria None seen (None) Ur Culture Indicated? Cult not indicated Acetaminophen (10-30) ug/mL Ethyl Alcohol ( - 10) mg/dL Urine Dip Bedside Urine Glucose Negative Bedside Urine Bilirubin - Negative Bedside Urine Ketone ++ 40 Urine Specific [place] 1.005 Bedside Urine Occult Blood - Negative Bedside Urine pH 8.5 Bedside Urine Protein +/- 15 Bedside Urine Urobilinogen - Negative Bedside Urine Nitrite - Negative Bedside Urine Leukocytes - Negative Esterase Imaging Data CT scan - head: Radiologist's Impression: [address] [address] [address] Scan Report Signed Patient: Lolly Bang [facility]#: [id number] : 2Acct:[id number] Age/Sex: 79 / FDate of Service: 07/16/19 Loc: ED Accession Number: [id number] Procedure: CT Stroke Ordering Provider: Leobardo Hernandez D.O. PROCEDURE: CT STROKE INDICATIONS: Eval for CVA TECHNIQUE: Noncontrast 4.5 mm thick angled axial sections acquired from the foramen magnum to the vertex, with coronal reformats. For radiation dose reduction, the following was used: automated exposure control, adjustment of mA and/or kV according to patient size. COMPARISON: [facility], CT, CT HEAD/BRAIN WO CON, 12/27/2018, 13:58. FINDINGS: Image quality: Excellent. CSF spaces: Basal cisterns are patent. No extra-axial fluid collections. The ventricles are symmetric in size and shape. Brain: No intracranial bleeds or masses. There is cerebral volume loss for age, with resultant ventricular and sulcal prominence. There are periventricular and deep white matter chronic small vessel ischemic changes. There is intracranial internal carotid artery atherosclerosis. Bilateral frontal hypodense hygromas are present, unchanged. Skull and face: Calvarium and visualized facial bones appear intact, without suspicious lesions. Sinuses: Visualized sinuses and mastoids are clear. IMPRESSION: 1. No acute intracranial process. 2. Moderate atrophy and chronic microvascular ischemic changes. The findings were discussed with Dr. Leobardo Hernandez on 07/16/19 at 5:21 PM. This study fulfills neurological imaging criteria for inclusion or exclusion of acute stroke therapies based on available published neurological guidelines. Dictated by: Janelle Bazzi M.D. on 07/16/2019 at 17:21 Approved by: Janelle Bazzi M.D. on 07/16/2019 at 17:22 CTA - brain/neck: Radiologist's Impression: [place] [address] CT Scan Report Signed Patient: Lolly Bang [facility]#: [id number] : 2Acct:[id number] Age/Sex: 79 / FDate of Service: 07/16/19 Loc: ED Accession Number: [id number] Procedure: CT angio head and neck Ordering Provider: Leobardo Hernandez D.O. PROCEDURE: CT ANGIO HEAD AND NECK INDICATIONS: CVA TECHNIQUE: Pre-contrast 4.5 mm thick sections acquired from the foramen magnum to the vertex. After the administration of intravenous contrast, 1 mm thick sections acquired from the aortic arch through the [place] of [place]. Post-contrast 4.5 mm thick sections then re- acquired from the foramen magnum to the vertex. 3-dimensional maximum-intensity- projection (MIP) and/or volume rendering reformats were acquired of the central intracranial vasculature and neck separately. COMPARISON: [facility], US, US BIOPSY ABDOMEN/RETROPERITONIUM, 03/27/2019, 11:41. [facility], CT, CT CHEST ABD PEL W CON, 03/04/2019, 10:18. [facility], CT, CT STROKE, 07/16/2019, 16:48. [facility], CT, CT HEAD/BRAIN WO CON, 12/27/2018, 13:58. FINDINGS: Image quality: Excellent. BRAIN: The ventricular system and cortical sulci demonstrate atrophy, consistent for the patient's stated age. There are areas of hypodensity within the periventricular and subcortical white matter. There is no acute intra-or extra axial fluid rozina ection. No acute hemorrhage, mass lesion or midline shift. Brainstem is unremarkable.. Globes are symmetrical. Sinuses are aerated. Osseous structures are intact. HEAD CT ANGIOGRAPHY: Anterior circulation: Intracranial internal carotid arteries are normal in size and flow. The flow within the paired anterior cerebral arteries is normal and symmetric. The flow within the middle cerebral arteries is normal and symmetric. The anterior communicating artery is seen. No aneurysms are seen. Posterior circulation: Visualized portions of the vertebral arteries demonstrate normal caliber, and join to form a normal appearing basilar artery. Flow within the posterior cerebral arteries is normal and symmetric. No aneurysms are seen. NECK CT ANGIOGRAPHY: The origins of the left and right common and external carotid arteries demonstrate no areas of hemodynamically significant stenosis, vascular occlusion or aneurysmal dilation. Mild calcification is noted at the origins of the internal carotid arteries bilaterally with less than 30% stenosis. Origins of the left and right vertebral arteries demonstrate no areas of hemodynamically significant stenosis, vascular occlusion or aneur ysmal dilation. Aortic arch demonstrates conventional anatomy. Limited, visualized portions of the subclavian vasculature are unremarkable. Lung apices demonstrate multiple bilateral pulmonary nodules with the largest identified in the posterior left upper lobe measuring 13 mm. They have significantly increased in size and number compared to prior exam. IMPRESSION: 1. No acute intracranial process. 2. Moderate atrophy and chronic microvascular ischemic changes. 3. No areas of hemodynamically significant stenosis, vascular occlusion or aneurysmal dilation within the anterior or posterior circulation. 4. No areas of hemodynamically significant stenosis, vascular occlusion or aneurysmal dilation within the neck vasculature. 5. Multiple bilateral pulmonary nodules increased in size and number compared to prior exam. Overall appearance is consistent with interval progression of metastatic disease. Any quantitative measurements of stenosis were performed using NASCET criteria. Dictated by: Janelle Bazzi M.D. on 07/16/2019 at 17:37 Approved by: Janelle Bazzi M.D. on 07/16/2019 at 17:51 ECG Data Attestation: I personally reviewed and interpreted this ECG as follows: Prior ECG tracings: not available for review Interpretation: Sinus rhythm Ventricular rate 96 Occasional PVCs Normal QRS Normal QTC No ST T wave changes MDM Narrative Medical decision making narrative: Patient arrived as a code stroke. Combative. Unable to obtain head CT. 2 mg IV Versed was administered which calmed the patient tremendously. Head CT and CT of the head neck shows no new findings. Difficult to obtain NIH score given the patient's willingness/ability to participate in the exam however during the period of time we are waiting for the CT results patient will remained much more calm. In my opinion was improving since arrival to the ER. I did discuss the case with on-call neurology at [facility]. I spoke with when I discussed the patient's presentation and her exam which is listed in this note she agreed to withhold on tPA. She was more concerned about a potential seizure and that the patient was postictal upon arrival. This does fit the patient's presentation. Fine for discussion with the patient's daughter she stated that approximately 20 years ago the pat ese did have a seizure after with thought was a head injury. Was on Dilantin for about a year afterwards but has not been on it since that time. Neurology did recommend given the patient Keppra. No further angiolytics were needed. I discussed the case with Dr. Fu who is uncomfortable keeping the patient here at this facility in the event that patient did have return back to baseline and required an EEG. Neurology also stated that she would need MRI/MRA and other metabolic workup as the cause of her symptoms but if she did not return to baseline she would acquired EEG. They initially accepted the patient at [facility]/[address] [place] [address] however it was noticed that the patient was [place]. I did discuss the case with [facility] who stated that they accepted the patient at [facility] with Dr. Khalil. I discussed the transfer with the patient's daughter. Patient is stable for transfer. Discharge Plan Departure Patient Disposition: [facility] Clinical Impression: Altered mental status, Anemia, Ascites Prescriptions: No Action levothyroxine [Synthroid] 125 mcg tablet 125 mcg PO QDAY Qty: 90 RF: 3 Glucose: Test Strips 0 str Qty: 250 RF: 1 atenolol 50 mg tablet See Rx Instructions .ROUTE .COMPLEX Qty: 30 RF: 6 furosemide [Lasix] 20 mg tablet 20 mg PO QDAY RF: 0 Airborne (ascorbate sodium) 333-1.7 mg tablet,chewable PO RF: 0 hydrocodone-acetaminophen 5-325 mg Tablet 1 - 2 tab PO Q4-6H PRN (Reason: Pain (Scale Score 1-3)) RF: 0 Referrals: Jeffy Cedeno MD [Primary Care Provider] -
[2019-07-16 17:34] VITALS: BP 134/70; PULSE 97; RESP 29; O2SAT 97
[2019-07-16 17:36] LABS: Anisocytosis 3+; Microcytosis 1+; Poikilocytosis 1+
[2019-07-16 17:37] LABS: Troponin I < 0.012 ng/mL (0.01-0.034)
[2019-07-16 17:38] LABS: Dimorphic RBC YES
[2019-07-16 17:41] LABS: Ammonia (NH3) < 9 umol/L (9-30)
[2019-07-16 17:53] LABS: Procalcitonin 0.08 ng/mL (<0.5)
[2019-07-16 18:23] VITALS: BP 123/57; PULSE 81; RESP 22; O2SAT 96
[2019-07-16] MEDS: levETIRAcetam 1,000 MG in SODIUM CHLORIDE 0.9% 100 ML 440 ML IV (18:56)
[2019-07-16 19:01] VITALS: BP 148/72; PULSE 81; RESP 20; O2SAT 97
[2019-07-16 19:13] LABS: Bacteria Urine None Seen; RBC Urine None Seen (0-5/HPF)
[2019-07-16 19:15] LABS: Appearance Urine UA CLEAR; Bilirubin Urine UA NEGATIVE (NEGATIVE); Color Urine UA YELLOW; Glucose Urine UA NEGATIVE (Negative); Ketones Urine UA 1+ (NEGATIVE); Leukocyte Esterase Urine UA NEGATIVE (NEGATIVE); Nitrite Urine UA NEGATIVE (Negative); Occult Blood Urine UA NEGATIVE (Negative); Protein Urine UA NEGATIVE (Negative); Specific Gravity Urine UA <=1.005 (1.000-1.035); Urobilinogen Urine UA 0.2 E.U./dL (0.2)
[2019-07-16 19:18] LABS: pH Urine UA 8.5 (4.5-8.0)
[2019-07-16 19:26] LABS: Reflexed Lactate in 2 Hours Y
[2019-07-16 19:28] LABS: Culture Indicated Urine Cult Not Indicated; Squamous Epithelial Cell Urine 0-1 /HPF (0-5/HPF); WBC Urine 0-1/HPF (0-5/HPF)
[2019-07-16 19:55] LABS: Lactate 2HR (Lactic Acid Rflx) 0.8 mmol/L (0.7-2.1)
[2019-07-16 20:00] VITALS: BP 129/79; PULSE 83; RESP 23; O2SAT 95
[2019-07-16 21:45] VITALS: BP 157/76; PULSE 83; RESP 17; O2SAT 94
== END 2019-07-16 22:00 | disposition short-term general hospital (02) ==
PROVIDERS: Emergency Provider Emergency Medicine; PCP Internal Medicine
DX: R41.82 Altered mental status, unspecified (principal); D64.9 Anemia, unspecified; R18.8 Other ascites; R47.81 Slurred speech
CPT/HCPCS: 36415; 70450; 70496; 70498; 80053; 80320; 80329; 81001; 81003; 82140; 83605; 83690; 84145; 84484; 85025; 85610; 85730; 93005; 96365; 96375; 99285; 99291; G0480; J1170; J1953; J2250; Q9967